=== PATIENT | female | born 1990 ===

== ENCOUNTER 2022-05-06 05:04 | Emergency (ER) | payer OTHER ==
[~2022-05-06] VITALS: Ht 165.1 cm; Wt 86.4 kg
[2022-05-06] MEDS ORDERED: LORazepam 2 mg/ml vial IM ONE (05:25)
== END 2022-05-06 05:59 ==
LOC: EDBD → ER 05:06 → MERGE 05:06 → ER 05:59
DX: Z00.8 Encounter for other general examination (principal); I10 Essential (primary) hypertension
CPT/HCPCS: 96372; 99283; J2060